=== PATIENT | male | born 1985 | race African-American/Black ===

== ENCOUNTER 2019-08-10 15:00 | Emergency (ER) | payer MEDICAID ==
[~2019-08-10] VITALS: Ht 185.4 cm; Wt 105.7 kg
--- NOTE | 2019-08-10 16:40 | NUR ---
NAUSEA FROM SMOKING MARIJUANA .PATIENT IS AXOX4.V/S SATBLE.PATIENT IS TELLING ONE TING AND CHANGING TO ANOTHER CONVERSATION.
--- NOTE | 2019-08-10 17:00 | NUR ---
LEFT MESSAGE TO FATHER TO GET HISTORY OF THE PATIENT.
[2019-08-10] MEDS ORDERED: ONDANSETRON 4 MG TAB.RAPDIS SL ONE (18:00)
[2019-08-10] MEDS ORDERED: ONDANSETRON 4 MG TAB.RAPDIS ONE (18:01)
--- NOTE | 2019-08-10 18:52 | NUR ---
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 MADE AWARE.
[2019-08-10 19:01] LABS: BASOPHILS % (AUTO) 0.3 % (0.0-2.0); EOSINOPHILS % (AUTO) 0.2 % (0.0-6.0); HEMATOCRIT 48 % (39-51); HEMOGLOBIN 16.3 g/dL (13.5-17.5); LYMPHOCYTES % (AUTO) 19.4 % (20.0-44.0); MEAN CORPUSCULAR HGB CONC 34 g/dl (31.0-36.0); MEAN CORPUSCULAR VOLUME 92 fL (80-96); MONOCYTES # (AUTO) 0.5 /CMM (0.1-1.30); MONOCYTES % (AUTO) 5.2 % (2.0-12.0); NEUTROPHILS # (AUTO) 7.8 /CMM (1.8-8.9); NEUTROPHILS % (AUTO) 74.9 % (43.0-81.0); PLATELET COUNT (AUTO) 245 /CMM (150-450); RED BLOOD CELL COUNT(AUTO) 5.25 MIL/uL (4.5-6.0); WHITE BLOOD COUNT (AUTO) 10.5 K/uL (4.3-11.0)
--- NOTE | 2019-08-10 19:11 | NUR ---
PATIENT AGRREED TO DRAW BLOOD.
[2019-08-10 19:26] LABS: APPEARANCE,URINE Clear (CLEAR); BILIRUBIN,URINE Negative (NEGATIVE); BLOOD, URINE Negative Ery/uL (NEGATIVE); COLOR,URINE Yellow (YELLOW); KETONES,URINE >=160 (NEGATIVE); LEUKOCYTE ESTERASE ,URINE Negative (NEGATIVE); NITRITE, URINE Negative (NEGATIVE); PH,URINE 5.5 (5.0-8.0); PROTEIN,URINE Negative (NEGATIVE); UGLUCOSE Negative (NEGATIVE); UROBILINOGEN,URINE 0.2 EU/dL (0.2)
[2019-08-10 19:26] LABS: CALCIUM, SERUM 9.6 mg/dL (8.5-10.1); CARBON DIOXIDE 21 mmol/L (21-32); CHLORIDE 103 mmol/L (98-107); GLUCOSE 96 mg/dL (74-106); POTASSIUM 3.6 mmol/L (3.5-5.1); SODIUM SERUM 139 mmol/L (136-145); UREA NITROGEN, BLOOD 11 mg/dL (7-18)
--- NOTE | 2019-08-10 19:26 | NUR ---
PATIENT ENDORSED TO PM NURSE FOR RAVI.
[2019-08-10 19:32] LABS: ACETAMINOPHEN < 2 ug/ml (10-30); ALANINE AMINOTRANSFERASE 41 U/L (12-78); ALBUMIN 4.2 g/dL (3.4-5.0); ALCOHOL, BLOOD < 3 mg/dL (0-0); ALKALINE PHOSPHATASE 89 U/L (46-116); ASPARTATE AMINOTRANSFERASE 34 U/L (15-37); BILIRUBIN,DIRECT 0.2 mg/dL (0.0-0.2); BILIRUBIN,TOTAL 0.7 mg/dL (0.2-1.0); SALICYLATE < 2.8 mg/dL (2.8-20.0); TOTAL PROTEIN, SERUM 7.9 g/dL (6.4-8.2)
--- NOTE | 2019-08-10 19:51 | NUR ---
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 BODY WAS REACTING IN AN EXTREME WAY. UP OVER NIGHT SMOKING MARIJUANA. EXPERIENCING CHILLS, NUMBESS IN HIS RT HAND, NAUSEA, REMOVING CLOTHES, HEART PALPATATIONS AND EMOTIONAL DISTRESS."
[2019-08-10 20:04] LABS: BACTERIA,URINE Few /HPF (None Seen); RBC,URINE 0-2 /HPF (0-2); SQUAMOUS EPITHELIAL CELL,UR Few /HPF (None Seen); WBC,URINE 0-2 /HPF (0-3)
--- NOTE | 2019-08-10 20:58 | NUR ---
PT'S FATHER ARRIVED AND IS SPEAKING TO Beatrice HEREDIA PA-C.
--- NOTE | 2019-08-10 21:21 | NUR ---
Patient discharged to home in stable condition. Written and verbal after care instructions given. Patient verbalizes understanding of instruction. PT REC'D A LIST OF TREATMENT CENTERS. PT'S FATHER IS AWARE AND IS DRIVING PT HOME. PT WILL BE ASSISTED TO THE CAR VIA WC AT FATHER'S REQUEST. VSS
[2019-08-10 21:22] VITALS: BP 135/84
== END 2019-08-10 21:22 | disposition home or self-care (01) ==
LOC: ER 15:12
DX: F12.90 Cannabis use, unspecified, uncomplicated (principal); R00.0 Tachycardia, unspecified; F20.9 Schizophrenia, unspecified; F31.9 Bipolar disorder, unspecified; Z60.2 Problems related to living alone
CPT/HCPCS: 36415; 80048; 80076; 80305; 80307; 80329; 81001; 85025; 99283; G0480; Q0162; 81000-TC